=== PATIENT | female | born 2000 | race Caucasian/White ===

== ENCOUNTER 2021-01-29 18:41 | Emergency (ER) | payer OTHER ==
[~2021-01-29 18:41] MED LIST: MOTRIN600 MG PO; PREDNISONE 20MG20 MG PO; ZOFRAN ODT4 MG SL
[2021-01-29] MEDS ORDERED: FLEXERIL5 MG PO (20:40)
== END 2021-01-29 21:09 | disposition home or self-care (01) ==
LOC: FER 18:41
DX: S13.4XXA Sprain of ligaments of cervical spine, initial encounter (principal); V43.52XA Car driver injured in collision with other type car in traffic accident, initial encounter; Y92.410 Unspecified street and highway as the place of occurrence of the external cause
CPT/HCPCS: 99283